=== PATIENT | female | born 1960 | race Caucasian/White ===

== ENCOUNTER → 2017-06-30 | Outpatient (CLI) | payer MEDICARE, OTHER ==
[~2017-06-30] MED LIST: ADVAIR 250/501 DISK IH; AMBIEN10 MG PO; CALCIUM600 M1 PO; CYMBALTA60 MG PO; DULOXETINE HCL60 MG PO; GABAPENTIN300 MG PO; HYDROCODONE-AP1 EAC6 PO; KADIAN20 MG PO; LYRICA150 MG PO; MACROBID100 MG PO; METHOCARBAMOL500 MG PO; MOBIC15 MG PO; MORPHINE SULFAT30 M5 PO; OMEPRAZOLE40 M1 PO; OXYCODONE HCL15 MG PO; PHENERGAN-CODE120 ML PO; PREDNISONE20 MG PO; PROAIR HFA8.5 GM IH; PROVENTIL,2.5 MG/3 M IH; SPIRIVA RESPIMAT4 GM IH; TRAZODONE HCL100 MG PO; VITAMIN D400 UNI1 PO; ZOFRAN ODT4 MG PO; ZYBAN 150 MG T150 MG PO
== END | disposition home or self-care (01) ==
LOC: CDC 14:50
DX: Z01.810 Encounter for preprocedural cardiovascular examination (principal); M51.27 Other intervertebral disc displacement, lumbosacral region
CPT/HCPCS: 93000